=== PATIENT | male | born 1940 | race Caucasian/White ===

== ENCOUNTER → 2018-10-06 | Outpatient (REF) | payer BC ==
[2018-10-06 13:46] LABS: INR 1.13; PROTHROMBIN TIME 14.7 SECONDS (12.1-14.4)
== END ==
LOC: M LABDRAW1 11:45
DX: M75.42 Impingement syndrome of left shoulder (principal)
CPT/HCPCS: 85610

== ENCOUNTER → 2023-03-04 | Outpatient (REF) | payer BC ==
[2023-03-05 12:48] LABS: SOURCE, BODY FLUID GLUCOSE RT KNEE
[2023-03-05 12:50] LABS: SOURCE, BODY FLUID RT KNEE; SYNOVIAL FLUID COLOR YELLOW (COLORLESS)
[2023-03-05 14:38] LABS: CRYSTALS, BODY FLUID NONE SEEN (NONE SEEN); SOURCE, BODY FLUID CRYSTALS RT KNEE
== END ==
LOC: M LAB REF 11:41
PROVIDERS: ATTEND Orthopaedic Surgery
DX: M17.11 Unilateral primary osteoarthritis, right knee (principal); M25.461 Effusion, right knee